=== PATIENT | male | born 1960 | race Caucasian/White ===

== ENCOUNTER 2018-02-23 14:36 | Outpatient (CLI) | payer BC | END 2018-02-23 16:27 | disposition home or self-care (01) | LOC: DCC 14:36 | DX: R07.9 Chest pain, unspecified (principal); E78.5 Hyperlipidemia, unspecified; I10 Essential (primary) hypertension; N40.0 Benign prostatic hyperplasia without lower urinary tract symptoms; D64.9 Anemia, unspecified | CPT/HCPCS: G0463 ==